=== PATIENT | female | born 1945 | race Caucasian/White ===

== ENCOUNTER 2020-06-11 17:49 | Emergency (ER) | payer MEDICARE, SELFPAY ==
[2020-06-11 18:18] VITALS: BP 175/70; PULSE 94; RESP 15; TEMP 36.6; O2SAT 96; BMI 30.8
--- NOTE | 2020-06-11 18:28 | CTR_ITS ---
PROCEDURE INFORMATION: Exam: CT Head Without Contrast Exam date and time: 06/11/2020 6:36 PM Age: 74 years old Clinical indication: Patient HX: Weakness, dizziness, slurred speech; Additional info: [place] problems TECHNIQUE: Imaging protocol: Computed tomography of the head without contrast. Radiation optimization: All CT scans at this facility use at least one of these dose optimization techniques: automated exposure control; mA and/or kV adjustment per patient size (includes targeted exams where dose is matched to clinical indication); or iterative reconstruction. COMPARISON: No relevant prior studies available. RADIATION DOSE METRICS: Total DLP (mGy-cm): 768.05 FINDINGS: Brain: No intracranial hemorrhage. Normal king white differentiation. No evidence of edema or territorial infarct. No abnormal mass effect or midline shift. No extra-axial fluid collection. Ventricles: Normal. No ventriculomegaly. Bones/joints: No acute fracture. Sinuses: Visualized sinuses are unremarkable. No fluid levels. Mastoid air cells: Visualized mastoid air cells are well aerated. Soft tissues: Unremarkable. CT/CT head wo con* [id number] IMPRESSION: No acute intracranial abnormality. Radiation Dose CTDIVOL = (mGy): DLP = 768.05 (mGy-cm)
--- NOTE | 2020-06-11 18:42 | ECG_ITS ---
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 Measurements Intervals [place] Rate: 101 P: 56 OK: 147 QRS: 3 QRSD: 86 T: 64 QT: 337 QTc: 437 Interpretive Statements SINUS TACHYCARDIA LEFT ATRIAL ENLARGEMENT [-0.15mV P WAVE IN V1/V2] POSSIBLE RIGHT VENTRICULAR CONDUCTION DELAY [RSR (QR) IN V1/V2] SEPTAL MYOCARDIAL INFARCTION , OF INDETERMINATE AGE [40+ ms Q WAVE IN V1/V2] No previous ECG available for comparison Electronically Signed On 06-11-2020 20:55:42 CDT by Alexi Garcia M.D. [email or web address]
--- NOTE | 2020-06-11 18:48 | W.ED.GENADLT ---
HPI - General Adult General: Chief complaint: General Medical Stated complaint: doesn't feel right Time Seen by Provider: 06/11/20 18:29 History of Present Illness: HPI narrative: 74-year-old female who around 2 PM this afternoon stated that she called her who is in the yard, because she did not feel right . She continues to feel that way. She states that she is not weak particularly on one side. She is having no language problems, but she does not feel right for her . She has not had this problem before. She does note that her left side is chronically weaker than the right just a bit. But she gives no history of stroke in the past. She does have coronary disease. She denies a headache, fever, vomiting. She has had some intermittent diarrhea. Onset (ago): hour(s) Radiation: non-radiation Severity: mild Quality: other Relieving factors: none Exacerbating factors: none Associated symptoms: Reports nausea; Deny chest pain, cough, diaphoresis, dyspnea, fevers/chills, headache(s), rash, palpitations, seizures, short of breath or vomiting Review of Systems Const: Denies: diaphoresis Eyes: Denies: change in vision or blurry vision ENMT: Denies: odynophagia, swelling of lips/tongue, bleeding gums, dental pain, change in hearing, epistaxis, post nasal drip or sinus pain Card: Denies: chest pain, palpitations, edema, dyspnea on exertion or orthopnea Resp: Denies: dyspnea, productive cough, non-productive cough or wheezing GI: Reports: nausea; Denies: vomiting : Denies: dysuria, urinary urgency or hematuria Musc: Denies: neck pain, back pain, joint redness or joint warmth Skin/Breast: Denies: rash or erythema Neuro: Denies: headache(s) Psych: Denies: anxiety Physical Exam Const: GENERAL APPEARANCE: well developed ORIENTATION/CONSCIOUSNESS: Yes oriented to person, Yes oriented to place and Yes oriented to time HENMT: COMMON NORMALS: normocephalic, external ears normal and Normal external nose present HEAD & SCALP: normocephalic FACE & SINUS: normal facial exam NOSE: Normal external nose present and No nasal discharge present EXTERNAL EAR: Yes external ears normal THROAT: posterior oropharynx normal; no peritonsillar mass Eye: COMMON NORMALS: Equal, round and reactive pupils present, EOMs intact bilaterally and conjunctivae normal EYELID: eyelids normal CONJUNCTIVA: Yes conjunctivae normal PUPIL: Yes Equal, round and reactive pupils present Neck/C-Spine: COMMON NORMALS: no meningeal signs GENERAL: No tracheal deviation Chest: COMMONS NORMALS: normal inspection of the chest CHEST: No tenderness Resp: COMMON NORMALS: clear to auscultation bilaterally EFFORT & INSPECTION: No tachypneic, No respiratory distress, No retractions, No uses accessory muscles and No tracheal deviation AUSCULTATION: clear to auscultation bilaterally, no rhonchi, no wheezes and lung sounds not diminished Cardio: COMMON NORMALS: regular rate and regular rhythm RATE: regular rate RHYTHM: regular rhythm HEART SOUNDS: no murmurs PERIPHERAL PULSES: radial pulses present GI: INSPECTION: No abdominal distension AUSCULTATION: No Hyperactive bowel sounds present and No Hypoactive bowel sounds present PALPATION: No Guarding due to palpation present (GI) and No Rigid due to palpation PERCUSSION: no dullness to percussion and no tympanic to percussion Neuro: BARB COMA SCALE: document GCS findings [place] coma scale eye opening: Spontaneous Barb coma scale verbal response: Orientated [place] coma scale motor response: Obey commands [place] coma scale total score: 15 SENSORIUM/ORIENTATION: Yes oriented to person, Yes oriented to place and Yes oriented to time MENINGEAL SIGNS: Yes no meningeal signs COORDINATION/BALANCE: [id number] test normal and [id number] test normal SPEECH: speech normal GAIT: Yes Unable to assess gait SENSORY EXAM: Yes extremities MOTOR EXAM: Pronator motor function not present and Normal motor muscle tone present throughout COORDINATION: [id number] test normal and [id number] test normal OTHER: NIH 1 (slight left LE weakness) Psych: COMMON NORMALS: mental status grossly normal Skin: COMMON NORMALS: no rashes or lesions noted GENERAL SKIN EXAM: no rashes or lesions noted Course Vital Signs: Vital signs: Vital Signs Temperature 97.9 F 06/11/20 18:18 Pulse Rate 94 06/11/20 18:18 Respiratory Rate 18 06/11/20 20:03 Blood Pressure 150/86 06/11/20 22:26 Pulse Oximetry 99 06/11/20 21:24 MDM - General Adult MDM Narrative: Medical decision making narrative: 4-year-old female presents not feeling well. There are no specific details is that she can give otherwise. Her states that he is not noticed any problems with her speech or language. There is no increased weakness or new weakness. At least not focally. He denies any chest pain or shortness of breath. After fluid bolus, she states she is improved. She believes she is essentially back to baseline. She walked in the ER without any problem, although she usually walks with a cane. She gets a one from the NIH scale with weakness to the left lower extremity which she believes is chronic CT was negative for stroke. Her bicarbonate level is 20. Her other laboratory is normal, except a mildly elevated first troponin which did not elevate at [address] are no ST changes on her EKG. With resolution of her symptoms she will be allowed home. Lab Data: Labs: Lab Results 06/11/20 06/11/20 06/11/20 Range/Units 18:51 19:08 19:08 WBC 5.3 (4.0-10.0) 10^3/ uL RBC 4.34 (4.1-5.3) 10^6/u L Hgb 13.1 (11.5-15.3) g/dL Hct 39.6 (37.0-47.0) % MCV 91.2 (81-99) fL MCH 30.2 (28.0-34.0) pg MCHC 33.1 (30.0-36.0) g/dL RDW 12.8 (12.1-15.1) % Plt Count 186 (130-400) 10^3/c mm MPV 9.7 (7.4-10.4) fL Neut % (Auto) 63.5 % Lymph % (Auto) 25.8 % [place] % (Auto) 8.7 % Eos % (Auto) 0.9 % Baso % (Auto) 0.9 % Neut # (Auto) 3.34 (1.8-7.7) 10^3/u L Lymph # (Auto) 1.4 (0.8-4.8) 10^3/u L [place] # (Auto) 0.5 (0.2-0.9) 10^3/u L Eos # (Auto) 0.1 (0.0-0.8) 10^3/u L Baso # (Auto) 0.1 (0.0-0.1) 10^3/u L Nucleated RBC % (a uto) 0 % Nucleated RBCs # 0.0 /100WBC Sodium Cancelled Potassium Cancelled Chloride Cancelled Carbon Dioxide Cancelled Anion Gap Cancelled BUN Cancelled Creatinine Cancelled GFR Calculation Cancelled Glucose Cancelled POC Glucose 115 (70-110) mg/dL Calculated Osmolal ity Cancelled Calcium Cancelled Total Bilirubin Cancelled AST Cancelled ALT Cancelled Alkaline Phosphata se Cancelled Troponin T Baselin e Troponin T 120 Min telida (0-10) ng/L Delta Troponin T (0-10) ABS# Total Protein Cancelled Albumin Cancelled Globulin Cancelled Triglycerides Cancelled Cholesterol Cancelled LDL Cholesterol, C alc Cancelled HDL Cholesterol Cancelled LDL/HDL Ratio Cancelled Cholesterol/HDL Ra gita Cancelled Urine Color (Yellow) Urine Appearance (CLEAR) Urine pH (5-7) Ur Specific Gravit y (1.005-1.030) Urine Protein (Negative) Urine Glucose (UA) (Normal) Urine Ketones (Negative) Urine Blood (Negative) Urine Nitrate (Negative) Urine Bilirubin (NEGATIVE) Urine Urobilinogen (Negative) mg/dL Ur Leukocyte Megan ase (Negative) 06/11/20 06/11/20 06/11/20 Range/Units 19:08 19:08 19:48 WBC (4.0-10.0) 10^3/ uL RBC (4.1-5.3) 10^6/u L Hgb (11.5-15.3) g/dL Hct (37.0-47.0) % MCV (81-99) fL MCH (28.0-34.0) pg MCHC (30.0-36.0) g/dL RDW (12.1-15.1) % Plt Count (130-400) 10^3/c mm MPV (7.4-10.4) fL Neut % (Auto) % Lymph % (Auto) % [place] % (Auto) % Eos % (Auto) % Baso % (Auto) % Neut # (Auto) (1.8-7.7) 10^3/u L Lymph # (Auto) (0.8-4.8) 10^3/u L [place] # (Auto) (0.2-0.9) 10^3/u L Eos # (Auto) (0.0-0.8) 10^3/u L Baso # (Auto) (0.0-0.1) 10^3/u L Nucleated RBC % (a uto) % Nucleated RBCs # /100WBC Sodium 143 Potassium 3.6 Chloride 109 H Carbon Dioxide 20 L Anion Gap 17.6 BUN 20 Creatinine 0.9 GFR Calculation Not Reportable Glucose Cancelled 97 POC Glucose (70-110) mg/dL Calculated Osmolal ity 292 Calcium 9.0 Total Bilirubin 0.2 AST 27 ALT 22 Alkaline Phosphata se 115 H Troponin T Baselin e Cancelled Troponin T 120 Min telida (0-10) ng/L Delta Troponin T (0-10) ABS# Total Protein 7.7 Albumin 4.8 Globulin 2.9 Triglycerides 167 H Cholesterol 193 LDL Cholesterol, C alc 99 HDL Cholesterol 61 LDL/HDL Ratio 1.62 Cholesterol/HDL Ra gita 3.16 Urine Color (Yellow) Urine Appearance (CLEAR) Urine pH (5-7) Ur Specific Gravit y (1.005-1.030) Urine Protein (Negative) Urine Glucose (UA) (Normal) Urine Ketones (Negative) Urine Blood (Negative) Urine Nitrate (Negative) Urine Bilirubin (NEGATIVE) Urine Urobilinogen (Negative) mg/dL Ur Leukocyte Megan ase (Negative) 06/11/20 06/11/20 06/11/20 Range/Units 19:48 19:55 21:26 WBC (4.0-10.0) 10^3/ uL RBC (4.1-5.3) 10^6/u L Hgb (11.5-15.3) g/dL Hct (37.0-47.0) % MCV (81-99) fL MCH (28.0-34.0) pg MCHC (30.0-36.0) g/dL RDW (12.1-15.1) % Plt Count (130-400) 10^3/c mm MPV (7.4-10.4) fL Neut % (Auto) % Lymph % (Auto) % [place] % (Auto) % Eos % (Auto) % Baso % (Auto) % Neut # (Auto) (1.8-7.7) 10^3/u L Lymph # (Auto) (0.8-4.8) 10^3/u L [place] # (Auto) (0.2-0.9) 10^3/u L Eos # (Auto) (0.0-0.8) 10^3/u L Baso # (Auto) (0.0-0.1) 10^3/u L Nucleated RBC % (a uto) % Nucleated RBCs # /100WBC Sodium Potassium Chloride Carbon Dioxide Anion Gap BUN Creatinine GFR Calculation Glucose POC Glucose (70-110) mg/dL Calculated Osmolal ity Calcium Total Bilirubin AST ALT Alkaline Phosphata se Troponin T Baselin e 24 H Troponin T 120 Min telida 21.68 H (0-10) ng/L Delta Troponin T -2.32 L (0-10) ABS# Total Protein Albumin Globulin Triglycerides Cholesterol LDL Cholesterol, C alc HDL Cholesterol LDL/HDL Ratio Cholesterol/HDL Ra gita Urine Color Yellow (Yellow) Urine Appearance Clear (CLEAR) Urine pH 5 (5-7) Ur Specific Gravit y 1.010 (1.005-1.030) Urine Protein Neg (Negative) Urine Glucose (UA) Norm (Normal) Urine Ketones Negative (Negative) Urine Blood Neg (Negative) Urine Nitrate Negative (Negative) Urine Bilirubin Neg (NEGATIVE) Urine Urobilinogen Norm (Negative) mg/dL Ur Leukocyte Megan ase Negative (Negative) Discharge Plan Discharge Patient Disposition: Home Clinical Impression: Weakness Condition: Stable Discharge Orders: Discharge Order (Routine); Ordered 06/11/20 Ordered By: Nicolas Starks Discharge Diet: Usual diet Discharge Activity: Increase activity as tolerated Patient Instructions: Weakness (ED) Activity Restrictions/Additional Instructions: Return for mental status changes, trouble with language or words, weakness to one side, dizziness, fever greater than 100, headache, rest discomfort, other concerning symptoms. Discharge Date/Time: 06/11/20 22:34 Coding Level of Care Code ED Recreation Therapist for Nallely Fwd Exam Comprehensive
[2020-06-11 18:55] LABS: Glucose Point of Care 115 mg/dL (70-110)
[2020-06-11 19:17] LABS: Basophils # 0.1 10^3/uL (0.0-0.1); Basophils % 0.9 %; Eosinophils # 0.1 10^3/uL (0.0-0.8); Eosinophils % 0.9 %; Hematocrit 39.6 % (37.0-47.0); Hemoglobin 13.1 g/dL (11.5-15.3); Lymphocytes # 1.4 10^3/uL (0.8-4.8); Lymphocytes % 25.8 %; Mean Corpuscular HGB Conc 33.1 g/dL (30.0-36.0); Mean Corpuscular Hemoglobin 30.2 pg (28.0-34.0); Mean Corpuscular Volume 91.2 fL (81-99); Mean Platelet Volume 9.7 fL (7.4-10.4); Monocytes # 0.5 10^3/uL (0.2-0.9); Monocytes % 8.7 %; Neutrophils # 3.34 10^3/uL (1.8-7.7); Neutrophils % 63.5 %; Nucleated Red Blood Cells % 0 %; Platelet Count 186 10^3/cmm (130-400); Red Blood Count 4.34 10^6/uL (4.1-5.3); Red Cell Distribution Width 12.8 % (12.1-15.1); White Blood Count 5.3 10^3/uL (4.0-10.0)
--- NOTE | 2020-06-11 19:36 | XR_ITS ---
WS: [id number] CHEST, 1 view. HISTORY: ams COMPARISON: None available. Lungs are clear and well expanded. No pleural effusion or pneumothorax. Cardiac size: Normal. Mediastinum/Aorta: Normal mediastinum. No osseous abnormality seen. XR/XR chest 1V 54516 IMPRESSION: Unremarkable chest.
[2020-06-11 20:03] VITALS: RESP 18
[2020-06-11 20:17] LABS: Troponin(5th) Baseline 24 ng/L (0-10)
[2020-06-11 20:19] LABS: Add Urine Microscopic? NO
[2020-06-11 20:29] LABS: Urine Appearance Clear (CLEAR); Urine Color Yellow (Yellow); pH Urine 5 (5-7)
[2020-06-11 20:30] LABS: Alanine Aminotransferase 22 U/L (0-33); Albumin Level 4.8 g/dL (3.5-5.2); Alkaline Phosphatase 115 IU/L (35-105); Blood Urea Nitrogen 20 mg/dL (8-23); Carbon Dioxide 20 mmol/L (22-29); Chloride 109 mmol/L (98-107); Chol HDL Ratio 3.16 mg/dL (0.0-4.40); Cholesterol 193 mg/dL (0-200); Globulin 2.9 g/dL (1.3-4.6); Glucose 97 mg/dL (65-115); HDL Cholesterol 61 mg/dL (60-100); LDL Cholesterol Calculated 99 mg/dL (50-129); LDL HDL Ratio 1.62 RATIO (0.00-3.22); Osmolality Calculated 292 mOsm/kg (285-295); Sodium 143 mmol/L (136-145); Total Bilirubin 0.2 mg/dL (0.15-1.2); Total Protein 7.7 g/dL (6.6-8.7); Triglycerides 167 mg/dL (0-150)
[2020-06-11 20:30] LABS: Bilirubin Urine Neg (NEGATIVE); Blood Urine Neg (Negative); Glucose Urine UA Norm (Normal); Ketones Urine Negative (Negative); Leukocyte Esterase Urine Negative (Negative); Nitrate Urine Negative (Negative); Protein Urine Neg (Negative); Urobilinogen Urine Norm (Negative)
[2020-06-11 20:32] LABS: Anion Gap 17.6 (5-19); Aspartate Amino Transferase 27 U/L (0-32); Potassium 3.6 mmol/L (3.5-5.1)
--- NOTE | 2020-06-11 20:42 | ECG_ITS ---
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 Measurements Intervals [place] Rate: 83 P: 54 NM: 153 QRS: 3 QRSD: 82 T: 53 QT: 367 QTc: 433 Interpretive Statements SINUS RHYTHM LEFT ATRIAL ENLARGEMENT [-0.15mV P WAVE IN V1/V2] SEPTAL MYOCARDIAL INFARCTION , OF INDETERMINATE AGE [40+ ms Q WAVE IN V1/V2] Compared to ECG 06/11/2020 18:48:29 Sinus tachycardia no longer present Myocardial infarct finding still present Electronically Signed On 06-13-2020 0:24:02 CDT by Alexi Garcia M.D. [email or web address]
--- NOTE | 2020-06-11 21:05 | PC.NURSE ---
EKG done at 2100 and shown to ER doctor
[2020-06-11] MEDS: sodium chloride 0.9% 1,000 ML 999 ML IV (21:18)
[2020-06-11 21:24] VITALS: BP 146/90; O2SAT 99
[2020-06-11 22:01] LABS: Troponin 5 2HR 21.68 ng/L (0-10)
[2020-06-11 22:02] LABS: Troponin 5 2HR Delta -2.32 ABS# (0-10)
--- NOTE | 2020-06-11 22:14 | PC.NURSE ---
performed ambulation trial per doctors orders. Patient got up to bedside commode with no need of assistance. Patient stated she felt weak and a little wobbly but maintained good balance. Patient usually walks with a cane but not always but did use cane while walking around the room and a small portion of the hallway. Patient did very well and did not need any assistance from me. Doctor has been made aware.
[2020-06-11 22:26] VITALS: BP 150/86
== END 2020-06-11 22:34 | disposition home or self-care (01) ==
PROVIDERS: Nurse Practitioner Family; Emergency Provider Emergency Medicine
DX: R53.1 Weakness (principal); R19.7 Diarrhea, unspecified; R11.0 Nausea; R00.0 Tachycardia, unspecified
CPT/HCPCS: 12345; 36415; 36416; 70450; 71045; 80053; 80061; 81003; 82962; 84484; 85025; 93005; 96360; 99283; J7030